=== PATIENT | female | born 1975 | race Caucasian/White ===

== ENCOUNTER 2020-06-15 22:43 | Emergency (ER) | payer BC ==
--- NOTE | 2020-06-15 23:31 | EDM.PDOC ---
ED HPI GENERAL MEDICAL PROBLEM - General Chief Complaint: Genitourinary Problem Stated Complaint: KIDNEY STONES Time Seen by Provider: 06/15/20 23:23 - History of Present Illness INITIAL COMMENTS - FREE TEXT/NARRATIVE: History of present illness: [] Patient has 2 weeks of pain in the left flank. She has been passing a little bit of sludge in her urine through the strainer. The pain is intermittent. It is rather severe at times and can be 8 out of 10. There is a little bit of nausea though not much and no vomiting. The patient does not get diaphoretic or had fever. She does not have any other symptoms. The patient has multiple kidney stones in the past some which required manipulation to remove Review of systems: As per history of present illness and below otherwise all systems reviewed and negative. Past medical history: As per history of present illness and as reviewed below otherwise noncontributory. Surgical history: As per history of present illness and as reviewed below otherwise noncontributory. Social history: No reported history of drug or alcohol abuse. Family history: As per history of present illness and as reviewed below otherwise noncontributory. Physical exam: Constitutional - well developed, well-nourished and in no acute distress HEENT - normocephalic, no evidence of trauma - external nose and mouth normal - no mass in neck and no JVD - mucosae moist EYES - full EOM, PERRL, no icterus - no evidence of inflammation, injection, or drainage Respiratory - no respiratory distress, equal bilateral expansion, lungs clear to auscultation and no abnormal lung sounds Cardiovascular - Regular Rhythm with S1 and S2 appreciated and no murmur, gallop or rub. Peripheral pulses symmetrically normal in all four extremities GI - abdomen soft without distension or organomegaly - normal bowel sounds - no guard or rebound Musculoskeletal no gross deformity of long bones or joints - no tenderness, swelling or edema Neurologic - Alert and oriented times four - CN II-XII grossly intact - motor sensory and coordination symmetrically normal Psychiatric - appropriate mood and affect with normal thought content Hematologic - No petechiae or purpura - mucosa appropriate color and sclera not pale - normal nail bed color and refill Integument - no rash or evidence of trauma - normal turgor Diagnostics: [] Therapeutics: [] Impression: [] Plan: [] Definitive disposition and diagnosis as appropriate pending reevaluation and review of above. flank Pain Score (Numeric/FACES): 5 - Related Data Allergies Allergy/AdvReac Type Severity Reaction Status Date / Time amoxicillin Allergy Vomiting Verified 06/16/20 00:07 codeine Allergy Fever Verified 06/16/20 00:07 morphine Allergy Hives Verified 06/16/20 00:07 prochlorperazine Allergy Other Verified 06/16/20 00:07 [From Compazine] Home Meds: Home Meds Tamsulosin HCl [Flomax] 0.4 mg PO ASDIRECTED 06/15/20 [History] Amitriptyline [Elavil] 50 mg PO BEDTIME 06/16/20 [History] DULoxetine [Cymbalta] 90 mg PO DAILY 06/16/20 [History] Hydrocodone/Acetaminophen [Vicodin Hp 10-300 mg Tablet] 1 each PO Q6HR PRN #14 tablet 06/16/20 [Rx] Liothyronine Sodium 5 mcg PO DAILY 06/16/20 [History] Ondansetron [Zofran] 4 mg PO Q4H PRN #10 tab 06/16/20 [Rx] Phentermine HCl 37.5 mg PO DAILY 06/16/20 [History] Zonisamide 100 mg PO DAILY 06/16/20 [History] atorvaSTATin [Lipitor] 20 mg PO DAILY 06/16/20 [History] cephALEXin [Cephalexin] 500 mg PO BID #20 tablet 06/16/20 [Rx] estradioL [Estradiol] 1 mg PO DAILY 06/16/20 [History] metFORMIN [Glucophage] 500 mg PO DAILY 06/16/20 [History] traMADol [Ultram] 50 mg PO ASDIRECTED 06/16/20 [History] ED ROS GENERAL - Review of Systems Review Of Systems: See Below ED EXAM, GENERAL - Physical Exam Exam: See Below Free Text/Narrative:: Physical exam is in the HPI Course - Vital Signs Text/Narrative:: Patient improved in the department and was able to take p.o. She wanted to be discharged. She was warned to return if she gets worse and follow-up with her urologist at the next available time when she is in the office. Last Recorded V/S: Last Vital Signs Temp 96.8 F L 06/15/20 23:26 Pulse 92 06/16/20 01:30 Resp 18 06/16/20 01:30 BP 160/100 H 06/16/20 01:30 Pulse Ox 96 06/16/20 01:30 - Orders/Labs/Meds Orders: Active Orders 24 hr Category Date Time Status CULTURE URINE [RM] Stat Lab 06/16/20 00:00 Received Sodium Chloride 0.9% [Saline Flush] Med 06/15/20 23:48 Active 10 ml FLUSH ASDIRECTED PRN Sodium Chloride 0.9% [Saline Flush] Med 06/15/20 23:48 Active 2.5 ml FLUSH ASDIRECTED PRN Saline Lock Insert [OM.PC] Stat Oth 06/15/20 23:48 Ordered Medication Orders Sodium Chloride (Saline Flush) 10 ml FLUSH ASDIRECTED PRN PRN Reason: Keep Vein Open Sodium Chloride (Saline Flush) 2.5 ml FLUSH ASDIRECTED PRN PRN Reason: Keep Vein Open Labs: Laboratory Tests 06/15/20 06/16/20 06/16/20 Range/Units 23:05 00:00 00:00 WBC 14.89 H (4.0-11.0) K/uL RBC 4.57 (4.30-5.90) M/uL Hgb 13.5 (12.0-16.0) g/dL Hct 41.3 (36.0-46.0) % MCV 90.4 (80.0-98.0) fL MCH 29.5 (27.0-32.0) pg MCHC 32.7 (31.0-37.0) g/dL RDW Std Deviation 43.0 (28.0-62.0) fl RDW Coeff of Nani 13 (11.0-15.0) % Plt Count 293 (150-400) K/uL MPV 9.20 (7.40-12.00) fL Neut % (Auto) 79.6 (48.0-80.0) % Lymph % (Auto) 13.4 L (16.0-40.0) % Oliver % (Auto) 6.0 (0.0-15.0) % Eos % (Auto) 0.7 (0.0-7.0) % Baso % (Auto) 0.3 (0.0-1.5) % Neut # (Auto) 11.9 H (1.4-5.7) K/uL Lymph # (Auto) 2.0 (0.6-2.4) K/uL Oliver # (Auto) 0.9 H (0.0-0.8) K/uL Eos # (Auto) 0.1 (0.0-0.7) K/uL Baso # (Auto) 0.1 (0.0-0.1) K/uL Nucleated RBC % 0.0 /100WBC Nucleated RBCs # 0 K/uL Sodium 138 (136-145) mmol/L Potassium 4.3 (3.5-5.1) mmol/L Chloride 102 (98-107) mmol/L Carbon Dioxide 22.7 (21.0-32.0) mmol/L BUN 21 H (7.0-18.0) mg/dL Creatinine 1.2 H (0.6-1.0) mg/dL Est Cr Clr Drug Dosing 61.61 mL/min Estimated GFR (MDRD) 49.3 ml/min Glucose 126 H (74-106) mg/dL Calcium 9.0 (8.5-10.1) mg/dL Total Bilirubin 0.2 (0.2-1.0) mg/dL AST 17 (15-37) IU/L ALT 22 (14-63) IU/L Alkaline Phosphatase 96 (46-116) U/L Total Protein 7.5 (6.4-8.2) g/dL Albumin 3.8 (3.4-5.0) g/dL Globulin 3.7 (2.6-4.0) g/dL Albumin/Globulin Ratio 1.0 (0.9-1.6) Urine Color BROWN Urine Appearance CLOUDY Urine pH 5.5 (5.0-8.0) Ur Specific Sumner >= 1.030 (1.001-1.035) Urine Protein 30 H (NEGATIVE) mg/dL Urine Glucose (UA) NEGATIVE (NEGATIVE) mg/dL Urine Ketones NEGATIVE (NEGATIVE) mg/dL Urine Occult Blood LARGE H (NEGATIVE) Urine Nitrite POSITIVE H (NEGATIVE) Urine Bilirubin SMALL H (NEGATIVE) Urine Ictotest NEGATIVE Urine Urobilinogen 0.2 (<2.0) EU/dL Ur Leukocyte Esterase NEGATIVE (NEGATIVE) Urine RBC TOO NUMEROUS TO CT H (0-2/HPF) Urine WBC 3-6 (0-5/HPF) Ur Epithelial Cells FEW (NONE-FEW) Calcium Oxalate Crystal RARE (NEGATIVE) Urine Bacteria FEW (NEGATIVE) Meds: Medications Generic Name Dose Route Start Last Admin Trade Name Lucinda PRN Reason Stop Dose Admin Sodium Chloride 10 ml 06/15/20 23:48 Saline Flush FLUSH ASDIRECTED PRN Keep Vein Open Sodium Chloride 2.5 ml 06/15/20 23:48 Saline Flush FLUSH ASDIRECTED PRN Keep Vein Open Discontinued Medications Generic Name Dose Route Start Last Admin Trade Name Lucinda PRN Reason Stop Dose Admin Sodium Chloride 1,000 mls @ 100 mls/hr 06/15/20 23:45 Normal Saline IV 06/16/20 00:08 ASDIRECTED STEPHANIE Sodium Chloride 1,000 mls @ 999 mls/hr 06/15/20 23:55 06/16/20 00:31 Normal Saline IV 06/16/20 00:55 999 mls/hr .BOLUS ONE Administration Ceftriaxone Sodium/Dextrose 1 50 mls @ 100 mls/hr 06/16/20 00:41 06/16/20 01:29 gm/ Premix IV 06/16/20 01:10 100 mls/hr ONETIME ONE Administration Ketorolac Tromethamine 15 mg 06/15/20 23:50 06/16/20 00:40 Toradol IVPUSH 06/15/20 23:51 Not Given ONETIME ONE Ketorolac Tromethamine 15 mg 06/16/20 00:32 06/16/20 00:34 Toradol IVPUSH 06/16/20 00:33 15 mg NOW STA Administration Ketorolac Tromethamine Confirm 06/16/20 00:09 06/16/20 00:36 Toradol Administered 06/16/20 00:10 Not Given Dose 15 mg .ROUTE .STK-MED ONE Ondansetron HCl 4 mg 06/15/20 23:49 06/16/20 00:31 Zofran IVPUSH 06/15/20 23:50 4 mg ONETIME ONE Administration Ondansetron HCl Confirm 06/16/20 00:09 06/16/20 00:36 Zofran Administered 06/16/20 00:10 Not Given Dose 4 mg .ROUTE .STK-MED ONE Departure - Departure Time of Disposition: 01:36 Disposition: Home, Self-Care 01 Condition: Good Clinical Impression: UTI, Urinary tract infectious disease, Kidney stone - Discharge Information Prescriptions: cephALEXin [Cephalexin] 500 mg PO BID #20 tablet Hydrocodone/Acetaminophen [Vicodin Hp 10-300 mg Tablet] 1 each PO Q6HR PRN #14 tablet PRN Reason: Pain (Moderate 4-6) Ondansetron [Zofran] 4 mg PO Q4H PRN #10 tab PRN Reason: Nausea Instructions: Renal Colic, [id number], Urinary Tract Infection, Adult Referrals: Geraldo Mcelroy MD [Primary Care Provider] - Sridevi Maldonado DO [Ordering Only Provider] - Forms: ED Department Discharge Additional Instructions: The following information is given to patients seen in the emergency department who are being discharged to home. This information is to outline your options for follow-up care. We provide all patients seen in our emergency department with a follow-up referral. The need for follow-up, as well as the timing and circumstances, are variable depending upon the specifics of your emergency department visit. If you don't have a primary care physician on staff, we will provide you with a referral. We always advise you to contact your personal physician following an emergency department visit to inform them of the circumstance of the visit and for follow-up with them and/or the need for any referrals to a consulting specialist. The emergency department will also refer you to a specialist when appropriate. This referral assures that you have the opportunity for follow-up care with a specialist. All of these measure are taken in an effort to provide you with optimal care, which includes your follow-up. Under all circumstances we always encourage you to contact your private physician who remains a resource for coordinating your care. When calling for follow-up care, please make the office aware that this follow-up is from your recent emergency room visit. If for any reason you are refused follow-up, please contact the [facility] Emergency Department at and asked to speak to the emergency department charge nurse. [facility] [address] [place] [id number] [id number] Sepsis Event Note (ED) - Evaluation Sepsis Screening Result: No Definite Risk - Focused Exam Vital Signs: Vital Signs Temp Pulse Resp BP Pulse Ox 06/16/20 01:30 92 18 160/100 H 96 06/15/20 23:26 96.8 F L 117 H 18 169/90 H 98 - My Orders Last 24 Hours: My Active Orders 06/15/20 23:48 Sodium Chloride 0.9% [Saline Flush] 10 ml FLUSH ASDIRECTED PRN Sodium Chloride 0.9% [Saline Flush] 2.5 ml FLUSH ASDIRECTED PRN Saline Lock Insert [OM.PC] Stat 06/16/20 00:00 CULTURE URINE [RM] Stat - Assessment/Plan Last 24 Hours: My Active Orders 06/15/20 23:48 Sodium Chloride 0.9% [Saline Flush] 10 ml FLUSH ASDIRECTED PRN Sodium Chloride 0.9% [Saline Flush] 2.5 ml FLUSH ASDIRECTED PRN Saline Lock Insert [OM.PC] Stat 06/16/20 00:00 CULTURE URINE [RM] Stat
[2020-06-15] MEDS ORDERED: Sodium Chloride 0.9% 1,000 ML IV SCH (23:45)
[2020-06-15] MEDS ORDERED: Sodium Chloride 0.9% 2.5 ML Syringe FLUSH PRN (23:48)
[2020-06-15] MEDS ORDERED: Sodium Chloride 0.9% 10 ML Syringe FLUSH PRN (23:48)
[2020-06-15] MEDS ORDERED: Ondansetron 4 MG/2 ML SDV IVPUSH ONE (23:49)
[2020-06-15] MEDS ORDERED: Ketorolac 30 MG/ML SDV IVPUSH ONE (23:50)
[2020-06-15] MEDS ORDERED: Sodium Chloride 0.9% 1,000 ML IV ONE (23:55)
[2020-06-16] MEDS ORDERED: Ketorolac 15 MG/ML SDV ONE (00:09)
[2020-06-16] MEDS ORDERED: Ondansetron 4 MG/2 ML SDV ONE (00:09)
[2020-06-16] MEDS ORDERED: Ketorolac 15 MG/ML SDV IVPUSH STA (00:32)
[2020-06-16 00:39] LABS: CARBON DIOXIDE,CO2 22.7 mmol/L (21.0-32.0); POTASSIUM,K 4.3 mmol/L (3.5-5.1)
[2020-06-16] MEDS ORDERED: cefTRIAXone 1 GM in Premix Bag 1 BAG IV ONE (00:41)
--- NOTE | 2020-06-16 00:54 | CR ---
INDICATION: Left-sided abdominal pain/flank pain. History of stones. COMPARISON: None. FINDINGS/IMPRESSION: Nonspecific mild gaseous distention of a bowel loop in the left mid abdomen. If desired, this could be further evaluated with CT. Otherwise unremarkable bowel gas pattern. No free air identified. Right upper quadrant cholecystectomy clips. No suspicious intra-abdominal calcifications. No acute osseous findings. Dictated by Chicho Holley MD @ 06/16/2020 12:53:30 AM Dictated by: Chicho Holley MD @ 06/16/2020 00:53:39 (Electronically Signed)
--- NOTE | 2020-06-16 01:21 | CT ---
INDICATION: Left renal stone TECHNIQUE: Axial images were obtained from the diaphragm to the pubic symphysis. Reformats were obtained in the coronal and sagittal plane. IV Contrast: None Oral Contrast: None COMPARISON: None. FINDINGS: Lower chest: Unremarkable. Liver: Diffusely decreased density of the liver consistent with fatty infiltration. No focal lesion. Gallbladder and bile ducts: Status post cholecystectomy. Spleen: Unremarkable. Normal in size without mass. Pancreas: Unremarkable. No mass or inflammation. Adrenal glands: Unremarkable. No nodules. Kidneys: Right kidney is normal in contour and unremarkable. There is mild fat stranding surrounding the left kidney with mild left hydronephrosis. At the distal left ureter there is an obstructing 6 x 4 millimeter stone. Vasculature: Unremarkable. GI tract: No dilated loops of large or small intestine. Minimal colonic diverticulosis. Pelvis: Status post hysterectomy. Bones: Unremarkable for age. IMPRESSION: 1. Mild left hydronephrosis with obstructing distal left ureteral stone measuring 6 x 4 millimeters. 2. Fatty infiltration of the liver. 3. Minimal colonic diverticulosis. Please note that all CT scans at this facility use dose modulation, iterative reconstruction, and/or weight-based dosing when appropriate to reduce radiation dose to as low as reasonably achievable. Dictated by Fabián Mullen MD @ Jun 16 2020 1:12AM Signed by Dr. Fabián Mullen @ Jun 16 2020 1:19AM
== END 2020-06-16 02:00 | disposition home or self-care (01) ==
LOC: MW.ED 22:43
DX: N39.0 Urinary tract infection, site not specified (principal); N13.2 Hydronephrosis with renal and ureteral calculous obstruction; Z88.1 Allergy status to other antibiotic agents; Z88.5 Allergy status to narcotic agent; Z88.8 Allergy status to other drugs, medicaments and biological substances; Z79.899 Other long term (current) drug therapy
CPT/HCPCS: 36415; 74018; 74176; 80053; 81001; 85025; 87086; 96365; 96375; 99284; J0696; J1885; J2405; J7030; 99283